=== PATIENT | male | born 1985 | race Two or more races ===

== ENCOUNTER 2021-05-20 19:47 | Emergency (ER) | payer OTHER ==
[~2021-05-20] VITALS: Ht 172.7 cm; Wt 124.7 kg
[2021-05-20] MEDS ORDERED: PEPCID AC20 MG (19:52)
[2021-05-20] MEDS ORDERED: PROTONIX40 M1 (19:52)
== END 2021-05-20 23:53 | disposition home or self-care (01) ==
LOC: ER 19:47
DX: R07.89 Other chest pain (principal); K21.9 Gastro-esophageal reflux disease without esophagitis

== ENCOUNTER 2021-07-06 15:03 | Emergency (ER) | payer OTHER ==
[~2021-07-06] VITALS: Ht 172.7 cm; Wt 117.9 kg
[~2021-07-06 15:03] MED LIST: PEPCID AC20 MG; PROTONIX40 M1
[2021-07-06] MEDS ORDERED: ZITHROMAX200 MG PO (17:36)
== END 2021-07-06 18:23 | disposition home or self-care (01) ==
LOC: ER 15:03
DX: J10.1 Influenza due to other identified influenza virus with other respiratory manifestations (principal); Z20.822 Contact with and (suspected) exposure to COVID-19

== ENCOUNTER 2021-10-07 10:07 | Outpatient (CLI) | payer OTHER ==
[~2021-10-07 10:07] MED LIST changes: +ZITHROMAX200 MG PO
== END 2021-10-07 10:30 | disposition home or self-care (01) ==
LOC: RAD 10:07
PROVIDERS: ATTEND Student in an Organized Health Care Education/Training Program
DX: R10.13 Epigastric pain (principal)